=== PATIENT | female | born 1990 | race Caucasian/White ===

== ENCOUNTER → 2018-01-10 | Outpatient (REF) | payer OTHER | LOC: M SFHCLERA 12:07 | DX: J02.9 Acute pharyngitis, unspecified (principal) ==

== ENCOUNTER → 2018-09-15 | Outpatient (CLI) | payer MEDICAID | LOC: M OUTALCOH 09:42 | PROVIDERS: ATTEND Psychiatry & Neurology Psychiatry | DX: Z13.89 Encounter for screening for other disorder (principal); F12.20 Cannabis dependence, uncomplicated ==

== ENCOUNTER 2018-09-23 10:14 | Outpatient (RCR) | payer MEDICAID | END 2018-10-13 | LOC: M OUTALCOH 10:14 | PROVIDERS: ATTEND Psychiatry & Neurology Psychiatry | DX: F12.20 Cannabis dependence, uncomplicated (principal) ==

== ENCOUNTER 2020-01-29 21:05 | Inpatient (IN) | payer MEDICAID ==
[2020-01-29] MEDS ORDERED: NICOTINE 21MG/24HR 1 EA TRANSDERMAL As Ordered ONE (21:11)
[2020-01-29] MEDS ORDERED: ACETAMINOPHEN 325 MG TAB As Ordered ONE (22:55)
[2020-01-30] MEDS ORDERED: ACETAMINOPHEN TAB 650MG DOSE (2X325MG) As Ordered ONE (04:54)
[2020-01-30] MEDS ORDERED: predniSONE 20 MG TAB As Ordered ONE (10:01)
[2020-01-30] MEDS ORDERED: AUGMENTIN 875 MG TAB As Ordered ONE ×2 (10:01→22:23)
[2020-01-30] MEDS ORDERED: NICOTINE 21MG/24HR 1 EA TRANSDERMAL As Ordered ONE (17:46)
[2020-01-31] MEDS ORDERED: ACETAMINOPHEN TAB 650MG DOSE (2X325MG) As Ordered ONE ×3 (01:36→21:37)
[2020-01-31] MEDS ORDERED: POTASSIUM CHLORIDE 10 MEQ SR TABLET As Ordered ONE (01:36)
[2020-01-31] MEDS ORDERED: traZODone 50 MG TAB As Ordered ONE ×2 (01:38→19:53)
[2020-01-31] MEDS ORDERED: predniSONE 20 MG TAB As Ordered ONE (07:52)
[2020-01-31] MEDS ORDERED: AUGMENTIN 875 MG TAB As Ordered ONE ×2 (07:53→19:53)
[2020-01-31] MEDS ORDERED: SERTRALINE HCL 25 MG TABLET As Ordered ONE (15:15)
[2020-01-31] MEDS ORDERED: NICOTINE 21MG/24HR 1 EA TRANSDERMAL As Ordered ONE (21:02)
[2020-02-01] MEDS ORDERED: ACETAMINOPHEN TAB 650MG DOSE (2X325MG) As Ordered ONE ×2 (03:35→16:48)
[2020-02-01] MEDS ORDERED: SERTRALINE HCL 25 MG TABLET As Ordered ONE (07:52)
[2020-02-01] MEDS ORDERED: AUGMENTIN 875 MG TAB As Ordered ONE (07:52)
[2020-02-01] MEDS ORDERED: predniSONE 20 MG TAB As Ordered ONE (07:52)
[2020-02-01] MEDS ORDERED: IBUPROFEN 600MG TAB As Ordered ONE (11:59)
[2020-02-01] MEDS ORDERED: AZUR1TAB PO (16:45)
[2020-02-01] MEDS ORDERED: PRED20TA PO (16:45)
[2020-02-01] MEDS ORDERED: hydrOXYzine 50 MG TAB PO PRN (16:45)
[2020-02-01] MEDS ORDERED: ACETAMINOPHEN TAB 650MG DOSE (2X325MG) PO PRN (16:45)
[2020-02-01] MEDS ORDERED: traZODone 50 MG TAB PO PRN (16:45)
[2020-02-01] MEDS ORDERED: IBUP200C28 PO (16:45)
[2020-02-01] MEDS ORDERED: AUGM875T28 PO (16:45)
[2020-02-01] MEDS ORDERED: IBUPROFEN 600MG TAB PO PRN (17:45)
[2020-02-01] MEDS ORDERED: OLANZapine ORAL DISINTEGRATING TAB 5MG PO PRN (19:00)
[2020-02-01] MEDS ORDERED: NICOTINE 21MG/24HR 1 EA TRANSDERMAL TD PRN (19:00)
[2020-02-01] MEDS ORDERED: MAALOX 30 ML SUSP *UDC PO PRN (19:00)
[2020-02-01] MEDS ORDERED: MOM 30ML SUSPENSION UDC PO PRN (19:00)
[2020-02-01] MEDS: AUGMENTIN 875 MG TAB PO SCH (20:10)
[2020-02-02 06:11] VITALS: BP 140/92
[2020-02-02] MEDS: AUGMENTIN 875 MG TAB PO SCH (08:19)
[2020-02-02] MEDS ORDERED: SERTRALINE HCL 25 MG TABLET PO SCH (09:00)
[2020-02-02] MEDS ORDERED: predniSONE 20 MG TAB PO SCH (09:00)
[2020-03-13 20:42] LABS: HEMATOCRIT 40.7 % (36.0-47.0); HEMOGLOBIN 14.4 g/dl (12.0-15.5); MEAN CORPUSCULAR HEMOGLOBIN 31.9 pg (27.0-33.0); MEAN CORPUSCULAR HGB CONC 35.4 g/dl (32.0-36.5); MEAN CORPUSCULAR VOLUME 90.2 fl (80.0-96.0); PLATELET COUNT, AUTOMATED 338 10^3/uL (150-450); RED BLOOD COUNT 4.51 10^6/uL (4.00-5.40); WHITE BLOOD COUNT 16.1 10^3/uL (4.0-10.0)
--- NOTE | 2020-03-25 07:32 | MHDS ---
PSYCHIATRIC DATE OF ADMISSION: 01/30/2020 DATE OF DISCHARGE: 02/02/2020 DIAGNOSIS: Unspecified mood disorder. Patient discharged to home with the following medications: - Zoloft 25 mg oral one tablet daily - Vistaril 50 mg one tablet daily as needed for anxiety - nicotine patch 21 mg one transdermal patch daily She was also given a return to work note. The pharmacy paper prescription was written for the patient due to no availability to electronically send prescriptions due to no computers being operational. DISPOSITION: Patient being discharged to home. DIET: Regular. ACTIVITY: As tolerated. CONSULTATION: Please see hospitalist history and physical report. BRIEF REASON FOR ADMISSION: Patient self-presented to [facility] with complaints of depression and suicidal thoughts to crash her car. PROCEDURES AND TREATMENT: 1. Individual and group psychotherapy. 2. Psychopharmacologic management. 3. Family therapy conducted by social work department with the patient and the patient's family for purpose of discharge planning. HOSPITAL COURSE: The patient responded well to individual and group psychotherapy, milieu therapy, and medication management. She was trialed on Zoloft 25 mg with good effect and denied need for increase. She stated that her depression was low and that she felt she was at a therapeutic level. She also felt that she was stable at this time and the crisis was over. As stated, family was aware of the discharge and feel patient is safe to return home. DISCHARGE ASSESSMENT: Patient is alert and oriented, fully aware of her surroundings. Mood is euthymic. Affect broad range. Denies any suicidal or homicidal ideation. PLAN: The patient is being discharged, as she no longer poses a risk of harm toward herself or others, and patient verbalized understanding on indications of her medications and states that she will maintain compliance. FOLLOWUP PLAN: The patient will followup with [facility] for medications management and psychotherapy. All other discharge orders per this provider as arranged by social work and buyer planner. MENTAL STATUS EXAMINATION: Patient is a 29-year-old single, employed female who self-presented to the emergency department (ED) with depression, suicidal ideation to crash her car. She lives with a boyfriend of 10-1/2 years who broke up with her after her return from a 2-week vacation in [place]. She is alert and oriented times four to person, place, time, and situation. Her hygiene and grooming are good, and she dressed appropriately. Eye contact is good. Speech is spontaneous and conversant. Normal rate, tone, and volume. She reports a decrease in depression and anxiety. Denies suicidal thoughts, planning, or intent. She denies homicidal thoughts planning, or intent. Her mood and affect are euthymic. She is negative for abnormal thought content. She was not observed with and denies paranoia, alana, psychosis, delusional thoughts, auditory or visual hallucinations. Her cognitive and intellectual functioning are congruent with her education. Memory is intact. Insight and judgment are good. She is future oriented. States that she and her ex-boyfriend will work together to find housing that she will arrange, although, according to her, the boyfriend wants her to stay in their home. Patient is hoping to find housing with sliding scale due to her employment is minimum wage earner. The boyfriend's family, who owns the property that they live on, wants her to leave. She is very prepared to find housing on her own. CONDITION AT TIME OF DISCHARGE: Patient is psychiatrically stable, and she met criteria by the discharge team today. MARYLU
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
[2020-04-23 11:49] LABS: AMPHETAMINES LEVEL URINE NEGATIVE (NEGATIVE); BARBITURATES URINE NEGATIVE (NEGATIVE); BENZODIAZEPINES URINE NEGATIVE (NEGATIVE); BLOOD UREA NITROGEN 13 MG/DL (7-18); CALCIUM LEVEL 9.2 MG/DL (8.5-10.1); CANNABINOIDS URINE POSITIVE (NEGATIVE); CARBON DIOXIDE LEVEL 24 MEQ/L (21-32); CHLORIDE LEVEL 109 MEQ/L (98-107); COCAINE METABOLITE URINE NEGATIVE (NEGATIVE); CREATININE FOR GFR 0.83 MG/DL (0.55-1.30); ETHYL ALCOHOL (ETHANOL) < 0.003 % (0.000-0.010); GLOMERULAR FILTRATION RATE > 60.0 (>60); GLUCOSE, FASTING 110 MG/DL (70-100); METHADONE URINE NEGATIVE (NEGATIVE); OPIATES URINE NEGATIVE (NEGATIVE); PHENCYCLIDINE URINE NEGATIVE (NEGATIVE); POTASSIUM SERUM 3.2 MEQ/L (3.5-5.1); SODIUM LEVEL 142 MEQ/L (136-145)
[2020-04-23 12:02] LABS: HCG, SERUM QUALITATIVE NEGATIVE (NEGATIVE)
== END 2020-02-02 12:00 | disposition home or self-care (01) | DRG 754 ==
LOC: M ED 21:05 → M PSY 01-30 00:30
PROVIDERS: ADMIT Psychiatry & Neurology Psychiatry; ATTEND Psychiatry & Neurology Psychiatry
DX: F32.9 Major depressive disorder, single episode, unspecified (principal)

== ENCOUNTER → 2023-09-08 | Outpatient (REF) | payer OTHER, MEDICAID ==
[~2023-09-08] MED LIST: AUGM875T28 PO; AZUR1TAB PO; IBUP200C28 PO; PRED20TA PO
[2023-09-08 22:13] LABS: APPEARANCE, URINE CLEAR (CLEAR); BACTERIA, URINE AUTO NEGATIVE (NEGATIVE); BILIRUBIN, URINE AUTO NEGATIVE (NEGATIVE); BLOOD, URINE BLOOD 3+ (NEGATIVE); COLOR, URINE YELLOW (YELLOW); GLUCOSE, URINE (UA) AUTO NEGATIVE (NEGATIVE); KETONE, URINE AUTO NEGATIVE (NEGATIVE); LEUKOCYTE ESTERASE, URINE AUTO 1+ (NEGATIVE); NITRITE, URINE AUTO NEGATIVE (NEGATIVE); PROTEIN, URINE AUTO NEGATIVE (NEGATIVE); RBC, URINE AUTO 7 /HPF (0-3); SPECIFIC GRAVITY URINE AUTO 1.009 (1.002-1.035); SQUAMOUS EPITHELIAL CELL UR AU 2 /HPF (0-6); UROBILINOGEN, URINE AUTO 0.2 mg/dL (0.0-2.0); WBC, URINE AUTO 7 /HPF (0-3)
== END ==
LOC: M LAB REF 21:53
PROVIDERS: ATTEND Physician Assistant Medical
DX: N39.0 Urinary tract infection, site not specified (principal)